=== PATIENT | female | born 1995 | race Caucasian/White ===

== ENCOUNTER 2018-09-26 17:10 | Inpatient (IN) | payer BC ==
[~2018-09-26] VITALS: Ht 180.3 cm; Wt 129.8 kg
[2018-09-26 17:18] VITALS: Ht 180.3 cm; Wt 129.8 kg
--- NOTE | 2018-09-26 18:47 | TRIAGE ---
OB Triage Datetime Report Generated by CPN: 09/26/2018 18:46 Datetime: 09/26/2018 18:27 Stage of : OB Triage Maternal Assessment Level of Consciousness: Fully Conscious DTR's/Clonus: DTRs 1+ Headache: Denies Blurred Vision: No Nausea/Vomiting: Denies RUQ Epigastric Pain: Denies Facial Edema: None Labor Evaluation Frequency: OCC Monitor Mode: External Duration (sec)2399: 40-70 Quality: Mild Pattern: Normal: <= 5 Contractions in 10 Minutes Resting Tone [place]: Relaxed Heart Rate FHR Baseline Rate: 165 Monitor Mode: External US Variability: Moderate 6-25 bpm Accelerations: 15X15 Decelerations: Variable Category: Category II Pain Assessment Pain Scale: 0 Pain Presence: None/Denies Pain Type: N/A Pain Goal: 3 Vaginal Exam Membrane Status: Intact Datetime: 09/26/2018 18:20 Stage of : OB Triage Datetime: 09/26/2018 17:41 Maternal Assessment Level of Consciousness: Fully Conscious DTR's/Clonus: DTRs 1+ Headache: Denies Blurred Vision: No Nausea/Vomiting: Denies RUQ Epigastric Pain: Denies Facial Edema: None Labor Evaluation Frequency: OCC Monitor Mode: External Duration (sec)2399: 40-50 Quality: Mild Pattern: Normal: <= 5 Contractions in 10 Minutes Resting Tone [place]: Relaxed Monitor Mode: External US Variability: Marked >25 bpm Decelerations: Variable Category: Category II Comments: UNABLE TO SEE BASELINE Pain Assessment Pain Scale: 0 Pain Presence: None/Denies Pain Type: N/A Pain Goal: 3 Vaginal Exam Membrane Status: Intact Datetime: 09/26/2018 17:17 Assessment Type: Triage EGA: 40.0 Maternal Assessment Level of Consciousness: Fully Conscious DTR's/Clonus: DTRs 2+; No Clonus Headache: Denies Blurred Vision: No Respiratory Effort: Unlabored; Regular Rhythm; Equal Expansion Breath Sounds, Left: Clear and Equal Breath Sounds, Right: Clear and Equal Nausea/Vomiting: Denies RUQ Epigastric Pain: Denies Lower Extremities Edema: Bilateral Lower Extremities Degree: Pitting Upper Extremities Edema: None Degree: None Facial Edema: None Fall Risk Assessment History of Falling: (0) No Secondary Diagnosis: (0) No Ambulatory Aid: (0) Bedrest/Nurse Assist IV Therapy: (0) No Gait: (0) Normal/Bedrest/Immobile Mental Status: (0) Oriented to Own Ability Fall Score: 0 Fall Risk Score Definition: No Risk: No action required Datetime: 09/26/2018 17:16 Time of Arrival: 09/26/2018 17:16 Arrived By: Ambulatory Arrived From: Home Chief Complaint: PT CAME IN FROM CLINIC FOR ELEVATED BLOOD PREASSURES, BPP, EFW, NST AND PIH PANEL Movement: Present Contractions: Denies/Absent Rupture of Membranes: Denies Vaginal Bleeding: None Vaginal Discharge: Denies Recent Sexual Intercouse: Denies Abdominal Trauma: Not Applicable Patient Complaints: None Additional Patient Complaints: NONE Time Provider Notified: 09/26/2018 18:15 Provider Notified: [place] Initial Plan: NST, BPP, EFW, AMADOU AND PIH PANEL
[2018-09-26 18:58] VITALS: BP 141/96; PULSE 126; RESP 20
[2018-09-26] MEDS ORDERED: LIDOCAINE 1% (MPF) 30 ML INJ INJ PRN (19:00)
[2018-09-26] MEDS ORDERED: CARBOPROST 250 MCG INJ IM PRN (19:00)
[2018-09-26] MEDS ORDERED: MISOPROSTOL 200 MCG TAB PR PRN (19:00)
[2018-09-26] MEDS ORDERED: BUTORPHANOL 2 MG INJ IV PRN (19:00)
[2018-09-26] MEDS ORDERED: OXYTOCIN 30 UNITS/LR 500 ML IV PRN (19:00)
[2018-09-26] MEDS ORDERED: IBUPROFEN 600 MG TAB PO PRN (19:00)
[2018-09-26] MEDS ORDERED: OXYTOCIN 30 UNITS/LR 500 ML IV SCH ×3 (19:00→20:00)
[2018-09-26] MEDS ORDERED: METHYLERGONOVINE 0.2 MG INJ IM PRN (19:00)
[2018-09-26] MEDS: LACTATED RINGER'S 1,000 ML IV SCH (19:01)
--- NOTE | 2018-09-26 19:14 | HP ---
Date/Time of Note Date/Time of Note DATE: 09/26/18 TIME: 19:13 OB - History Hx of Present Free Text/Dictation @40+wks GA variables : 1 Para: 0 Care: Good Care Ultrasounds: Normal mid trimester US Obstetrical Complications: None Medical Complications: None Past Family/Social History * Past Medical, Surgical, Family and Obstetric Histories reviewed from chart. OB Admission Exam Vital Signs Vital Signs Vital Signs Date Temp Pulse Resp B/P (MAP) Pulse Ox O2 O2 Flow FiO2 Time Delivery Rate 09/26/18 98.4 126 20 141/96 Room Air 18:58 (111) Physical Exam Cervical Dilatation: None Effacement: 0% Station: Ballotable Membranes: Intact Heart Rate: 140's Accelerations: Accelerations Present Decelerations: Variable Decelerations Varibility: Moderate Contractions on Admission: >10 Minutes Apart Last 72 hours Lab Results CBC & BMP 09/26/18 17:48 Liver Function Test 09/26/18 17:48 Alanine Aminotransferase (ALT/SGPT) 19 Albumin 3.6 Alkaline Phosphatase 193 H Aspartate Amino Transf (AST/SGOT) 17 Direct Bilirubin 0.00 Total Protein 7.2 OB Assessment/Plan Reason for admission: observation Other Assessment: PMH Denies PSH Denies Plan: Expectant Management NEVA SARKAR M.D. Sep 26, 2018 19:14
[2018-09-26] MEDS ORDERED: PREN-99 PO (21:10)
[2018-09-26] MEDS ORDERED: LACTATED RINGER'S 1,000 ML IV PRN (21:12)
[2018-09-27] MEDS: LACTATED RINGER'S 1,000 ML IV SCH ×3 (03:00→18:57)
--- NOTE | 2018-09-27 11:16 | PREAC ---
Date/Time of Note Date/Time of Note DATE: 09/27/18 TIME: 11:13 Anesthesia Eval and Record Evaluation Time Pre-Procedure Interview DATE: 09/27/18 TIME: 11:13 Age 23 Sex female NPO: 8 hrs Preoperative diagnosis labor pain Planned procedure epidural Past Medical History Past Medical History: Includes Psych: Depression : Gestational age: (40.1) Surgery & Anesthesia Issues No known issue Meds Anticoagulation: No Beta Selin within 24 hr: No Reason Beta Selin not given: Pt. not on B-Selin Reported Medications Vit #76/Iron,Carb/FA (Pnv 29-1 Tablet) 1 Each Tablet, 1 EACH PO, TAB 09/26/18 Current Medications Lactated Ringer's 1,000 ml @ 125 mls/hr Q8H IV Last administered on 09/27/18at 03:00; Admin Dose 125 MLS/HR; Start 09/26/18 at 18:48 Butorphanol Tartrate (Stadol) 2 mg Q2H PRN IV .PAIN Last administered on 09/27/18at 08:26; Admin Dose 2 MG; Start 09/26/18 at 19:00 Lidocaine (Xylocaine 1% (Mpf)) 30 ml ONCE PRN INJ .EPISIOTOMY; Start 09/26/18 at 19:00 Oxytocin/Lactated Ringer's 500 ml @ 500 mls/hr ONCE POST IV ; Start 09/26/18 at 19:00 Oxytocin/Lactated Ringer's 500 ml @ 125 mls/hr POST IV ; Start 09/26/18 at 19:00 Ibuprofen (Motrin) 600 mg ONCE PRN PO .PAIN 1-5; Start 09/26/18 at 19:00 Oxytocin/Lactated Ringer's 500 ml @ 0 mls/hr ONCE PRN IV .VAGINAL BLEEDING; Start 09/26/18 at 19:00 Methylergonovine Maleate (Methergine) 0.2 mg ONCE PRN IM .VAGINAL BLEEDING; Start 09/26/18 at 19:00 Carboprost Tromethamine (Hemabate) 250 mcg ONCE PRN IM .VAGINAL BLEEDING; Start 09/26/18 at 19:00 Misoprostol (Cytotec) 1,000 mcg ONCE PRN MD .VAGINAL BLEEDING; Start 09/26/18 at 19:00 Oxytocin/Lactated Ringer's 500 ml @ 0 mls/hr FOR INDUCTION IV Last administered on 09/26/18at 21:22; Admin Dose 2 MLS/HR; Start 09/26/18 at 20:00 Lactated Ringer's 1,000 ml @ 2,000 mls/hr Q30M PRN IV .ANESTHESIA Last administered on 09/27/18at 10:53; Admin Dose 2,000 MLS/HR; Start 09/26/18 at 21:12 Meds reviewed: Yes Allergies Coded Allergies: No Known Allergy (Unverified , 09/26/18) Allergies Reviewed: Yes Labs/Studies Labs Reviewed: Reviewed by anesthesiologist Result Diagram: 09/26/18 1748 09/26/18 1748 Laboratory Tests 09/26/18 17:48 Blood Bank Test 09/26/18 17:48 Antibody Screen NEGATIVE Blood Type A POSITIVE Rh Immune Globulin Candidate NO test: Positive Studies: ECG (n/a), CXR (n/a) Pre-procedure Exam Last vitals Vital Signs Date Temp Pulse Resp B/P (MAP) Pulse Ox O2 O2 Flow FiO2 Time Delivery Rate 09/26/18 98.4 126 20 141/96 Room Air 18:58 (111) Airway: Adequate mouth opening Mallampati: Mallampati I Teeth: Normal Lung: Normal Heart: Normal ASA Physical Status ASA physical status: 2 Emergency: None Planned Anesthetic Neuraxial: Epidural Pre-operative Attestations Prior to commencing anesthesia and surgery, the patient was re-evaluated, there was verification of: *The patient's identity *The results of appropriate recent lab work and preoperative vital signs *The above evaluation not changing prior to induction *Anesthetic plan, risk benefits, alternative and complications discussed with patient/family; questions answered; patient/family understands, accepts and wishes to proceed. ESTELA LEE MD Sep 27, 2018 11:16
[2018-09-27] MEDS ORDERED: FENTAnyl 2MCG/ML-ROPIV 0.2% 100 ML BAG EPI SCH (11:30)
[2018-09-27] MEDS ORDERED: NALOXONE (0.4 MG/ML) INJ IV PRN (11:30)
[2018-09-27] MEDS ORDERED: ONDANSETRON 4 MG INJ IV PRN (11:30)
--- NOTE | 2018-09-27 18:30 | QN ---
Documentation Comment progress note labor and delivery patient seen and evaluated no complaints vs stable afebrile ab gravid nt extremity no edema no calf tenderness ve 3/90/-2 srom fhr cat 1 a/ iup at 40 wks currently on pitocin for induction p/ iupc anticipate vaginal delivery TRACI BRIGGS MD Sep 27, 2018 18:30
[2018-09-27] MEDS ORDERED: AMPICILLIN 2 GM/NS (PMX) 100 ML IV ONE (21:00)
[2018-09-28] MEDS ORDERED: ACETAMINOPHEN 325 MG TAB PO ONE
[2018-09-28] MEDS ORDERED: GENTAMICIN 120 MG/NS (PMX) 100 ML IVPB SCH
[2018-09-28] MEDS ORDERED: AMPICILLIN 1 GM/NS (PMX) 50 ML IV SCH (01:00)
--- NOTE | 2018-09-28 01:58 | LDN ---
Date/Time of Note Date/Time of Note DATE: 09/28/18 TIME: 01:55 Delivery Summary Weeks of Gestation 40 weeks Placenta Delivered: Spontaneously Meconium: Light Episiotomy: No Laceration repair: First degree perineal laceration repaired with 3-0 Vicryl. Anesthesia type: Epidural Estimated blood loss: 150 Sponge & Needle done & correct: Yes All needle counts correct: Yes Any foreign bodies felt in the: No Delivery Information Sex Sex: male Apgars 1 Minute: 8 5 Minute: 9 Suctioning Nose & mouth suctioned at minerva: No Umbilical Cord Umbilical cord with: 3 Vessels Cord presentations: nuchal cord Nuchal cord present X: 1 Cord Blood was obtained: Yes Mother & Baby Disposition Disposition Mom & Baby to Maternity; Good: Yes CLIFF MUNGUIA MD September 28, 2018 01:58
[2018-09-28] MEDS: LACTATED RINGER'S 1,000 ML IV* SCH ×3 (03:34→19:34)
[2018-09-28 03:40] VITALS: BP 125/75; PULSE 94; RESP 20
[2018-09-28] MEDS ORDERED: DIBUCAINE 1% 30 GM OINT TOP PRN (04:00)
[2018-09-28] MEDS ORDERED: METHYLERGONOVINE 0.2 MG INJ IM PRN (04:00)
[2018-09-28] MEDS ORDERED: MISOPROSTOL 200 MCG TAB PR PRN (04:00)
[2018-09-28] MEDS ORDERED: CARBOPROST 250 MCG INJ IM PRN (04:00)
[2018-09-28] MEDS ORDERED: WITCH HAZEL/GLYCERIN PAD PR PRN (04:00)
[2018-09-28] MEDS ORDERED: OXYTOCIN 30 UNITS/LR 500 ML IV PRN (04:00)
[2018-09-28] MEDS ORDERED: HYDROCODONE/APAP (5/325) TAB PO PRN (04:00)
[2018-09-28] MEDS ORDERED: ACETAMINOPHEN 325 MG TAB PO PRN (04:00)
[2018-09-28] MEDS ORDERED: BENZOCAINE 20% 56 ML SPRAY TOP PRN (04:00)
[2018-09-28] MEDS: IBUPROFEN 600 MG TAB PO SCH ×4 (06:03→23:25)
[2018-09-28] MEDS: AMPICILLIN/SULB 3 GM/NS (PMX) 100 ML IVPB SCH ×4 (06:03→23:25)
[2018-09-28 08:00] VITALS: BP 120/77; PULSE 86; RESP 17
--- NOTE | 2018-09-28 08:13 | PAC ---
Date/Time of Note Date/Time of Note DATE: 09/28/18 TIME: 08:13 Post-Anesthesia Notes Post-Anesthesia Note Last documented vital signs Vital Signs Date Temp Pulse Resp B/P (MAP) Pulse Ox O2 O2 Flow FiO2 Time Delivery Rate 09/28/18 98.1 94 20 125/75 100 Room Air 03:40 (92) Activity: WNL Respiratory function: WNL Cardiovascular function: WNL Mental status: Baseline Pain reasonably controlled: Yes Hydration appropriate: Yes Nausea/Vomiting absent: No ESTELA LEE MD September 28, 2018 08:13
[2018-09-28] MEDS: SENNA/DOCUSATE NA (8.6MG/50MG) TAB PO SCH ×2 (08:25→21:23)
[2018-09-28 12:00] VITALS: BP 114/72; PULSE 88; RESP 17
[2018-09-28] MEDS: LANOLIN HPA 1 PKT TOP PRN (15:29)
[2018-09-28 15:30] VITALS: BP 106/64; PULSE 85; RESP 18
[2018-09-28 20:00] VITALS: BP 115/83; PULSE 97; RESP 20
[2018-09-29] MEDS: LACTATED RINGER'S 1,000 ML IV* SCH ×2 (03:34→08:05)
[2018-09-29 03:37] VITALS: BP 120/69; PULSE 78; RESP 20
[2018-09-29] MEDS: IBUPROFEN 600 MG TAB PO SCH ×3 (05:22→17:59)
[2018-09-29] MEDS: AMPICILLIN/SULB 3 GM/NS (PMX) 100 ML IVPB SCH (05:23)
[2018-09-29 08:00] VITALS: BP 116/70; PULSE 81; RESP 16
--- NOTE | 2018-09-29 08:31 | PD.PPDC ---
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
--- NOTE | 2018-09-29 08:31 | DS ---
Date/Time of Note Date/Time of Note DATE: 09/29/18 TIME: 08:30 Obstetrical Discharge Record Final Diagnosis Final Diagnosis: Term delivered Vaginal Delivery Obstetrical Delivery: Spontaneous, Laceration, Repaired Condition on Discharge Physical Assessment Last Vitals: stable afebrile Voiding: Yes Bowel Movement: Yes Breast: Soft, non-tender, Filling Fundus: Firm Abdomen and Incision: soft nt Calf Tenderness: No Patient Condition: Fair TRACI BRIGGS MD September 29, 2018 08:31
[2018-09-29] MEDS: SENNA/DOCUSATE NA (8.6MG/50MG) TAB PO SCH ×2 (09:03→21:00)
[2018-09-29] MEDS: LANOLIN HPA 1 PKT TOP PRN (12:27)
[2018-09-29 21:30] VITALS: BP 112/74; PULSE 82; RESP 18
[2018-09-30 04:30] VITALS: BP 120/82; PULSE 66; RESP 18
[2018-09-30] MEDS: IBUPROFEN 600 MG TAB PO SCH ×3 (05:27→12:00)
[2018-09-30] MEDS ORDERED: ONDANSETRON 4 MG TAB PO PRN (08:00)
[2018-09-30] MEDS: SENNA/DOCUSATE NA (8.6MG/50MG) TAB PO SCH (08:34)
[2018-09-30 08:40] VITALS: BP 130/87; PULSE 98; RESP 18
[2018-09-30] MEDS ORDERED: DIPHTH/TET/ACEL PERTUSS (ADULT) 0.5 ML VIAL IM* ONE (09:00)
[2018-09-30 15:50] VITALS: BP 118/72; PULSE 72; RESP 18
--- NOTE | 2018-10-01 18:35 | DELSUM ---
Delivery Summary A-C Datetime Report Generated by CPN: 10/01/2018 18:34 DELIVERY PERSONNEL Assistant Teacher: Tersigni, Adri MATERNAL INFORMATION Delivery Anesthesia: Epidural Medications in Delivery: LR with 30 units of pitocin Delivery QBL (ml): 200 Placenta Cultured: Yes Maternal Complications: Maternal Fever Other Maternal Complications: maternal fever of 101.5 F LABOR SUMMARY EDC: 09/26/2018 00:00 No. Babies in Womb: 1 Attempted: No Labor Anesthesia: Epidural LABOR INFORMATION Reason for Induction: Other Reason for Induction- Other: hypertension at admission Onset of Labor: 09/27/2018 18:21 Complete Dilatation: 09/28/2018 00:49 Oxytocin: Induction Group B Beta Strep: Negative Antibiotics # of Doses: 2 Antibiotics Time of Last Dose: 09/28/2018 00:42 Steroids Given: None Reason Steroids Not Administered: Not Applicable MEMBRANES Membranes Rupture Method: Spontaneous Rupture of Membranes: 09/27/2018 10:42 Length of Rupture (hr): 14.87 Amniotic Fluid Color: Light Meconium Amniotic Fluid Amount: Moderate Amniotic Fluid Odor: None STAGES OF LABOR Stage 1 hr: 6 Stage 1 min: 28 Stage 2 hr: 0 Stage 2 min: 45 Stage 3 hr: 0 Stage 3 min: 3 Total Time in Labor hr: 7 Total Time in Labor min: 16 VAGINAL DELIVERY Episiotomy: None Laceration Extension: First Degree Laceration Type: Perineal Laceration Repair: Yes Initial Vag Sponge Count: 10 Final Vag Sponge Count: 10 Initial Vag Sharps Count: 1+1 Final Vag Sharps Count: 2 Sponge Count Correct: Yes; Vaginal Sweep Performed Sharps Count Correct: Yes BABY A INFORMATION Delivery Date/Time: 09/28/2018 01:34 Method of Delivery: Vaginal Born in Route : No : N/A Forceps: N/A Vacuum Extraction: N/A Shoulder Dystocia : N/A SHOULDER DYSTOCIA BABY A Infant Delivery Date/Time: 09/28/2018 01:34 PRESENTATION/POSITION BABY A Presentation: Cephalic Cephalic Presentation: Vertex Vertex Position: Left Occipital Anterior Breech Presentation: N/A PLACENTA INFORMATION BABY A Placenta Delivery Time : 09/28/2018 01:37 Placenta Method of Delivery: Spontaneous Placenta Status: Delivered SCORES BABY A Heart Rate 1 min: >100 bpm Resp Effort 1 min: Good Cry Reflex Irritability 1 min: Cough/Sneeze/Pulls Away Muscle Tone 1 min: Active Motion Color 1 min: Blue/Pale Resuscitation Effort 1 min: Tactile Stimulation SCORE 1 MIN: 8 Heart Rate 5 min: >100 bpm Resp Effort 5 min: Good Cry Reflex Irritability 5 min: Cough/Sneeze/Pulls Away Muscle Tone 5 min: Active Motion Color 5 min: Body [place], Extremit Blue Resuscitation Effort 5 min: Tactile Stimulation SCORE 5 MIN: 9 INFORMATION BABY A Gestational Age at Delivery: 40.2 Gestational Status: Full Term- 39- 40.6 Weeks Infant Outcome : Liveborn Infant Condition : Stable Sex: Male IDENTIFICATION/MEDS BABY A ID Band Number: [id number] ID Band Location: Right Leg; Left Arm Sensor Applied: Yes Sensor Number: [id number] Sensor Location : Cord Clamp Vitamin K Given : Not Given Erythromycin Given: Not Given WEIGHT/LENGTH BABY A Birthweight (gm): 3985 Weight (lb): 8 Infant Weight (oz): 13 Length (in): 20.50 Length (cm): 52.07 CORD INFORMATION BABY A No. Cord Vessels: 3 Nuchal Cord : Around Neck x1, Loose Cord Blood Taken: Yes Suction: Mouth; Nose ASSESSMENT BABY A Complications: Extended Tachycardi Physical Findings at Delivery: Molding of the Head; Within Normal Limits Machinist Supervisor/ALS Called : Yes Infant Care By: Tristin RN/ NICU team
== END 2018-09-30 17:55 | disposition home or self-care (01) | DRG 807 ==
LOC: OBT 17:10 → L-D 17:11 → OBT 18:23 → L-D 18:27 → PP1 09-28 03:44
PROVIDERS: ADMIT Obstetrics & Gynecology; ATTEND Obstetrics & Gynecology
PROC: 3E033VJ Introduction of Other Hormone into Peripheral Vein, Percutaneous Approach (ICD-10-PCS; 2018-09-26)
PROC: 10E0XZZ Delivery of Products of Conception, External Approach (ICD-10-PCS; principal; 2018-09-28)
PROC: 0HQ9XZZ Repair Perineum Skin, External Approach (ICD-10-PCS; 2018-09-28)
DX: O69.81X0 Labor and delivery complicated by cord around neck, without compression, not applicable or unspecified (principal); O70.0 First degree perineal laceration during delivery; Z37.0 Single live birth; Z3A.40 40 weeks gestation of pregnancy
CPT/HCPCS: 62322; 76815; 76818; 80053; 81001; 81003; 84560; 85025; 85610; 85730; 86592; 86850; 86900; 86901; 87086; 87340; 87591; 88307; 99464; J0290; J0295; J0595; J1580; J2405; J2590; J3010; J7120